=== PATIENT | female | born 1980 | race Caucasian/White ===

== ENCOUNTER 2021-09-26 11:20 | Emergency (ER) | payer BC ==
[~2021-09-26] VITALS: Ht 154.9 cm; Wt 81.8 kg
[2021-09-26 11:42] VITALS: TEMP 97.6
[2021-09-26] MEDS ORDERED: ARMOUR THYROID60 MG PO (11:50)
[2021-09-26] MEDS ORDERED: ASPIRIN 81M81 MG/TA2 PO (11:51)
[2021-09-26 13:28] VITALS: BP 111/79; PULSE 85
== END 2021-09-26 13:35 | disposition home or self-care (01) ==
LOC: COL.ER 11:20
DX: U07.1 COVID-19 (principal); D68.51 Activated protein C resistance; E03.9 Hypothyroidism, unspecified
CPT/HCPCS: J1885; J2060